=== PATIENT | female | born 1965 | race Caucasian/White ===

== ENCOUNTER 2025-04-14 10:26 | Emergency (ER) | payer BC, SELFPAY ==
[2025-04-14 10:39] VITALS: BP 126/89
[2025-04-14 11:19] VITALS: BMI 18.5
[2025-04-14 11:28] VITALS: BP 118/80
[2025-04-14 11:45] LABS: % Basophils 0.5 % (0-2); % Eosinophils 0.5 % (0-6); % Immature Granulocytes 0.2 % (0-0.5); % Lymphocytes 25.1 % (20.5-51.1); % Monocytes 7.2 % (1.7-9.3); % Neutrophils 66.5 % (42.2-75.2); Absolute Lymphocytes 1.5 10^3/uL (1.2-3.4); Absolute Monocytes 0.4 10^3/uL (0.1-0.6); Absolute Neutrophils 4.1 10^3/uL (1.4-6.5); Hematocrit 44.3 % (37.0-47.0); Hemoglobin 15.1 g/dL (12.0-16.0); Mean Corp Hgb Conc. 34.1 g/dL (33.0-37.0); Mean Corpuscular Hgb 33.7 pg (27.0-31.0); Mean Corpuscular Volume 98.9 fL (81.0-99.0); Mean Platelet Volume 10.9 fL (7.4-10.4); Nucleated Red Blood Cells % 0 %; Platelet Count 178 10^3/uL (130-400); Red Blood Cell Count 4.48 10^6/uL (4.20-5.40); Red Cell Dist. Width 12.6 % (11.5-14.5); White Blood Cell Count 6.1 10^3/uL (4.8-10.8)
--- NOTE | 2025-04-14 11:46 | ED.GENMED ---
History of Present Illness
General
Chief Complaint: Abdominal Pain
Source: patient and spouse
Exam Limitations: none
Time Seen by Provider: 04/14/25 11:29
Nursing documentation reviewed up to this point in time: agreed with
History of Present Illness
History of Present Illness:
59-year-old female presents emergency ferment due to left lower quadrant abdominal pain ongoing for 2 months, intermittent. She was seen in urgent care and her primary care the blood work was normal. She denies fevers, but had chills last night.
Past History
Past History
ED Past Medical History: Hypercholesterolemia and Hypothyroidism
ED Past Surgical History: Gynecological (Hysterectomy) and Other (Umbilical hernia repair)
Social History
Tobacco: Non-smoker
Alcohol: None
Drug: None
Personal:
Living: with family
Review of Systems
Review of Systems
Allergies reviewed?: Yes
All Other Systems: Not applicable
Constitutional: Reports chills; Denies fever
EENT: Reports no symptoms
Respiratory: Reports no symptoms
Cardiac: Reports no symptoms
ABD/GI: Reports abdominal pain; Denies vomiting or diarrhea
: Reports no symptoms
Musculoskeletal: Reports no symptoms
Skin: Reports no symptoms
Neurological: Reports no symptoms
Endocrine: Reports no symptoms
Hematologic/Lymphatic: Reports no symptoms
Psychiatric: Reports no symptoms
Phy Exam
Physical Exam
Physical Exam:
Physical Exam
General: no apparent distress, not acutely ill
Neck: supple. no meningeal signs. normal posterior pharynx
Heart: s1/s2 regular rate and rhythm, no murmur. equal radial
pulses.
HEENT: Pupils equal round reactive to light, EOMI
Lungs: no acute respiratory distress. clear bilaterally
Abdomen: normal bowel sounds. Mild left lower quadrant tenderness. no CVAT
Neuro: alert and oriented. no focal neurological deficits cranial nerves II through XII intact
Skin: no rash
Psychiatric: well kept. interactive and cooperative
Extremities: no edema. no calf tenderness. negative homans. good distal pulses
Course
Orders/Labs/Results
Orders:
Orders
04/14/25 11:30
Complete Blood Count/With Diff Urgent
Comprehensive Metabolic Panel Urgent
Lipase Urgent
04/14/25 11:35
Urinalysis Reflex To Culture Urgent
Date Specimen was Collected: 04/14/25
Time Specimen was Collected: 11:34
04/14/25 11:45
CT Abd/pel W Iv And Oral Contr Urgent
Comment:
Reason For Exam: LLQ abdominal pain
Iohexol [Omnipaque] See Protocol PO NOW STA
Abnormal Lab Results
04/14/25
11:30
MCH 33.7 H pg
(27.0-31.0)
MPV 10.9 H fL
(7.4-10.4)
Chloride 108 H mmol/L
(98-107)
Glucose 110 H mg/dl
(70-99)
Albumin 5.1 H g/dl
(3.5-5.0)
04/14/25 11:30
04/14/25 11:30
Vital Signs
Initial and Last Documented VS:
Initial Vital Signs
Temp Pulse Resp BP Pulse Ox
98.1 F 95 22 126/89 99
04/14/25 10:39 04/14/25 10:39 04/14/25 10:39 04/14/25 10:39 04/14/25 10:39
Last Documented Vital Signs
Temp Pulse Resp BP Pulse Ox
98.1 F 72 18 121/78 99
04/14/25 10:39 04/14/25 14:41 04/14/25 14:41 04/14/25 15:23 04/14/25 15:23
MDM/Problems Addressed
Differential Diagnosis Includes:
Diverticulitis, constipation
MDM/Problems Addressed:
59-year-old female with left lower quadrant abdominal pain, due to constipation. No signs of diverticulitis, or bowel obstruction. Stable for discharge. Will encourage MiraLAX for 1 week. Follow up with primary care. Return precautions given.
*Radiology
Radiology exam reviewed: radiology read reviewed (CT abdomen pelvis shows constipation, no other acute findings)
*Pulse Oximetry
Patient hypoxic: no
*Critical Care Note
Total Time (30-74mins, 75-104mins- exclusive of procedures): Not Applicable
Patient Management
Social determinants of health affecting care: Living situation and Strong social support
Escalation/DeEscalation of care consider admission/obs:
admit not indicated
ED Attending Note
-
Portions of this chart may have been created with voice recognition software.� Occasional wrong word or��sound alike� substitutions may have occurred due to the inherent limitations of voice recognition software.
Discharge Plan
Departure
Patient Disposition: Home (Routine Discharge)
Date of Disposition: 04/14/25
Time of Disposition: 16:19
Patient with high blood pressure during this ER visit?: Yes
Condition: Good
Discharge Problem:
Constipation, Abdominal pain
Instructions: Constipation, Adult (DC), Abdominal Pain, BLOOD PRESSURE
Referrals:
Su Harper, [Family Provider] - Call in 1-3 days for appt
Activity Restrictions/Additional Instructions:
Use miralax, 1 scoop per day for 1 week. Mix in juice.
Interventions
Interventions:
*Risk Screen - Suicide Last Done: 04/14/25 10:39
*General Assessment Last Done: 04/14/25 10:39
*Neglect/Abuse Screening Last Done: 04/14/25 10:39
*ED- Fall Risk Assessment Last Done: 04/14/25 11:19
*ED COVID-19 Vaccine History Last Done: 04/14/25 11:19
AH-Rthpat-Uocpuwafth Assessment Last Done: 04/14/25 11:19
Discharge Date and Time
Print Language: CYPRIOT
[2025-04-14] MEDS: OMNIPAQUE 50 ML PO (11:50)
[2025-04-14 11:51] LABS: ALT (SGPT) 23 U/L (0-35); AST (SGOT) 30 U/L (14-36); Albumin 5.1 g/dl (3.5-5.0); Alkaline Phosphatase 65 U/L (38-126); Blood Urea Nitrogen 11 mg/dl (7-17); Calcium 10.1 mg/dl (8.4-10.2); Carbon Dioxide 27 mmol/L (22-30); Chloride 108 mmol/L (98-107); Estimated Creatinine Clearance 80 ml/min; Glucose 110 mg/dl (70-99); Lipase 84 U/L (23-300); Potassium 4.7 mmol/L (3.5-5.1); Sodium 142 mmol/L (135-145); Total Bilirubin 1.2 mg/dl (0.2-1.3); Total Protein 8.1 g/dl (6.3-8.2); eGFR > 60.00
[2025-04-14 11:57] LABS: Urine Albumin Negative (Neg - Trace); Urine Bilirubin Negative (Negative); Urine Character Clear (Clear); Urine Color Yellow; Urine Glucose Negative (Negative); Urine Ketone Negative (Negative); Urine Leukocyte Negative (Negative); Urine Nitrite Negative (Negative); Urine Occult Blood Negative (Negative); Urine Specific Gravity 1.005 (<1.030); Urine Urobilinogen Negative (Neg - 1+); Urine pH 6.5 (5.0-9.0)
[2025-04-14 12:00] VITALS: BP 115/80
[2025-04-14 13:14] VITALS: BP 108/73
[2025-04-14 14:00] VITALS: BP 112/70
[2025-04-14 15:23] VITALS: BP 121/78
== END 2025-04-14 17:02 | disposition home or self-care (01) ==
LOC: EMR 10:26
PROVIDERS: EMERGENCY PHYSICIAN Emergency Medicine; FAMILY PHYSICIAN Family Medicine
DX: K59.00 Constipation, unspecified (principal); R10.32 Left lower quadrant pain; E78.00 Pure hypercholesterolemia, unspecified; E03.9 Hypothyroidism, unspecified; Z90.710 Acquired absence of both cervix and uterus
CPT/HCPCS: 99284; 74177; 80053; 81003; 83690; 85025; Q9967

== ENCOUNTER 2025-07-08 06:55 | Emergency (ER) | payer BC, SELFPAY ==
[2025-07-08 06:58] VITALS: BP 147/92
--- NOTE | 2025-07-08 08:30 | ED.GENMED ---
History of Present Illness
General
Chief Complaint: Extremity Pain (non-traumatic)
Source: patient
Exam Limitations: none
Time Seen by Provider: 07/08/25 08:18
History of Present Illness
History of Present Illness:
60yoF with a history of hypothyroidism and hyperlipidemia presenting with her for evaluation of myalgias. Patient reports pain and muscle cramping in her extremities for the past 2 weeks. Symptoms seem to be worse in the left forearm and
right calf. No trauma. Symptoms began shortly after undergoing a colonoscopy. She was seen at [facility] 6 days ago and had blood work which she was told was normal. Patient is concerned that something is 'off balance' in her system. She has
tried taking electrolytes without improvement. She also reports feeling shaky and has been having difficulty sleeping the past 3 days because her body will jolt and she will wake up. She denies any headaches, visual changes, vomiting, diarrhea,
chest pain, shortness of breath, fevers, joint swelling, rashes.
Past History
Past History
ED Past Medical History: Hypercholesterolemia and Hypothyroidism
ED Past Surgical History: Gynecological (Hysterectomy) and Other (Umbilical hernia repair)
Social History
Tobacco: Non-smoker
Alcohol: None
Drug: None
Personal:
Living: with family
Phy Exam
General Physical Exam
General Presentation: well appearing and no apparent distress
General Skin: warm and dry
General Habitus: normal
General Mental: alert
ENT Exam
ENT Exam: normocephalic and other (+Tenderness and tightness at the cervical portion of the L trapezius muscle)
Eye Exam
Eye Exam: PERRL and conjunctiva normal
Cardiovascular Exam
Cardiovascular Exam: regular rate/rhythm, no edema and no murmur
Pulmonary Exam
Pulmonary Exam: lungs clear, no respiratory distress, no rales, no crackles, no rhonchi and no wheezing
Neurological Exam
Neurological Exam: alert
[place] Coma Scale
Eye Opening: Spontaneous
Verbal Response: Oriented
Motor Response: Obeys Commands
GCS Total Score: 15
Musculoskeletal Exam
Musculoskeletal Exam: other (No joint swelling or erythema)
Skin Exam
Skin Exam: normal color and warm/dry
Psychiatric Exam
Psychiatric Exam: normal mood/affect
Course
Orders/Labs/Results
Orders:
Orders
07/08/25 08:28
Electrocardiogram (*1) Urgent
Reason for Study: Other
Other Reason for Exam: L arm pain
Cardiac Monitoring- Treatment ONCE
EKG- Treatment ONCE
0.9% Sodium Chloride 1000 ml [Nss] 1,000 ml IV BOLUS
Ketorolac [Toradol] 15 mg IV NOW STA
07/08/25 08:39
Complete Blood Count/With Diff Urgent
TSH Reflex To Free T4 Urgent
07/08/25 09:04
Troponin I Urgent
07/08/25 09:44
Comprehensive Metabolic Panel Urgent
Creatine Phosphokinase Urgent
Magnesium Urgent
Abnormal Lab Results
07/08/25 07/08/25
08:39 09:44
MCH 33.0 H pg
(27.0-31.0)
MPV 10.5 H fL
(7.4-10.4)
Chloride 108 H mmol/L
(98-107)
Creatinine 0.5 L mg/dL
(0.6-1.0)
Glucose 101 H mg/dl
(70-99)
07/08/25 08:39
07/08/25 09:44
Vital Signs
Initial and Last Documented VS:
Initial Vital Signs
Temp Pulse Resp BP Pulse Ox
98.3 F 77 16 147/92 98
07/08/25 06:58 07/08/25 06:58 07/08/25 06:58 07/08/25 06:58 07/08/25 06:58
Last Documented Vital Signs
Temp Pulse Resp BP Pulse Ox
98.6 F 68 16 125/74 99
07/08/25 08:38 07/08/25 11:15 07/08/25 11:15 07/08/25 11:00 07/08/25 11:15
MDM/Problems Addressed
Differential Diagnosis Includes:
60yoF here with muscle cramping x 2 weeks. Now having difficulty sleeping for a few days due to shakiness. Started after having a colonoscopy. VSS. She is well appearing in no distress. Exam reassuring without extremity swelling or skin changes.
Differential diagnosis includes but is not limited to: electrolyte abnormality, dehydration, anxiety, consider ACS, less likely rhabdomyolysis
Initial ED plan: Check cardiac labs, CK, magnesium, TSH, and EKG. IV Toradol and fluid bolus for symptoms.
*Pulse Oximetry
SaO2: 98
Oxygen Mode of Delivery: Room air
Patient hypoxic: no (98%)
*EKG
Interpreted by ED Provider?: Yes
EKG Intrepretation Date: 07/08/25
Heart Rate: 57
Rate: bradycardiac
Rhythm: sinus
[place]: normal axis
Interval: normal interval
QRS Pattern: normal QRS
Ischemia: non-specific ST changes
*Critical Care Note
Total Time (30-74mins, 75-104mins- exclusive of procedures): Not Applicable
Update Note
Update Note:
EKG shows NSR with nonspecific ST/T wave changes. No prior EKGs to compare to. No chest pain and troponin WNL. Electrolytes, renal function, CK, and TSH normal. Unclear etiology of symptoms. Considered side effect of her statin although she has been
only this for over a year without issue. Patient requesting a muscle relaxer. Will trial Robaxin. She has an appt with her PCP in 2 days so will have close f/u. Patient discharged in stable condition.
ED Attending Note
-
Portions of this chart may have been created with voice recognition software.� Occasional wrong word or��sound alike� substitutions may have occurred due to the inherent limitations of voice recognition software.
Discharge Plan
Departure
Patient Disposition: Home (Routine Discharge)
Date of Disposition: 07/08/25
Time of Disposition: 10:56
Patient with high blood pressure during this ER visit?: No
Discharge Problem:
Muscle cramping
Instructions: Muscle, joint, and bone pain - Discharge instructions
Prescriptions:
New
methocarbamol 500 mg tablet
500 mg PO Q8H PRN (Reason: muscle spasms) Qty: 20 0RF
No Action
levothyroxine 50 mcg Tablet
50 mcg PO DAILY
rosuvastatin 10 mg Tablet
10 mg PO DAILY
Referrals:
Su Harper DO [Family Provider, Family Practice]
Activity Restrictions/Additional Instructions:
Take Robaxin as needed for muscle spasms.
Please follow-up with your family doctor in 2 days as previously scheduled. Return to the ER with any new or worsening symptoms.
Interventions
Interventions:
*Risk Screen - Suicide Last Done: 07/08/25 06:58
*General Assessment Last Done: 07/08/25 08:38
*Neglect/Abuse Screening Last Done: 07/08/25 06:58
*ED- Fall Risk Assessment Last Done: 07/08/25 08:38
*ED COVID-19 Vaccine History Last Done: 07/08/25 08:38
*Nursing Disposition Last Done: 07/08/25 11:44
ED-Skin Assessment Last Done: 07/08/25 08:38
ED-Peripheral Vascular Assessment Last Done: 07/08/25 08:38
ED-Musculoskeletal Assessment Last Done: 07/08/25 08:38
Discharge Date and Time
Discharge Date/Time: 07/08/25 11:45
Print Language: KHMER
[2025-07-08 08:38] VITALS: BP 121/76; BMI 20.5
[2025-07-08 08:57] LABS: Hematocrit 43.5 % (37.0-47.0); Hemoglobin 14.8 g/dL (12.0-16.0); Mean Corp Hgb Conc. 34.0 g/dL (33.0-37.0); Mean Corpuscular Volume 97.1 fL (81.0-99.0); Nucleated Red Blood Cells % 0 %; Platelet Count 191 10^3/uL (130-400); Red Cell Dist. Width 12.6 % (11.5-14.5)
[2025-07-08] MEDS: NSS 1000 IV (09:17)
[2025-07-08 09:18] VITALS: BP 121/76
[2025-07-08] MEDS: TORADOL 15 MG IV (09:18)
[2025-07-08 09:40] LABS: Troponin I < 0.012 ng/ml
[2025-07-08 10:00] VITALS: BP 125/75
[2025-07-08 10:13] LABS: ALT (SGPT) 17 U/L (0-35); AST (SGOT) 21 U/L (14-36); Albumin 4.5 g/dl (3.5-5.0); Alkaline Phosphatase 58 U/L (38-126); Blood Urea Nitrogen 8 mg/dl (7-17); Calcium 9.8 mg/dl (8.4-10.2); Carbon Dioxide 27 mmol/L (22-30); Chloride 108 mmol/L (98-107); Estimated Creatinine Clearance 79 ml/min; Glucose 101 mg/dl (70-99); Magnesium 2.1 mg/dl (1.6-2.3); Potassium 4.3 mmol/L (3.5-5.1); Sodium 139 mmol/L (135-145); Total Protein 6.9 g/dl (6.3-8.2); eGFR > 60.00
[2025-07-08 11:00] VITALS: BP 125/74
== END 2025-07-08 11:45 | disposition home or self-care (01) ==
LOC: EMR 06:55
PROVIDERS: Physician Assistant; EMERGENCY PHYSICIAN Emergency Medicine; FAMILY PHYSICIAN Family Medicine
DX: R25.2 Cramp and spasm (principal); E78.00 Pure hypercholesterolemia, unspecified; E03.9 Hypothyroidism, unspecified
CPT/HCPCS: 99284; 96374; 96361; 80053; 82550; 83735; 84443; 84484; 85025; 93005

== ENCOUNTER 2025-07-26 11:35 | Emergency (ER) | payer BC, SELFPAY ==
[2025-07-26] VITALS (7 sets, daily range): BP systolic 104–139; BP diastolic 62–84; BMI 20.5
--- NOTE | 2025-07-26 12:58 | ED.GENMED ---
History of Present Illness
General
Chief Complaint: Breathing Problem
Source: patient and spouse
Time Seen by Provider: 07/26/25 12:29
History of Present Illness
History of Present Illness:
This patient is a 60-year-old female who presents emergency department with complaints that for started about a month ago. She describes inability to sleep such that she is up for many hours throughout the night. Sometimes when she tries to sleep
she feels like her body will have a momentary jerk which wakes her up. She also notes that she feels like she 'cannot shut my brain down' when she tries to close her eyes. She was seen in the emergency department within this timeframe and was
prescribed a muscle relaxant which did not provide relief of her symptoms. She then was prescribed Lunesta which she took for a total of 9 days. She did not tolerate this medication because the next day she would feel very anxious and agitated.
She then was transition to trazodone which she has taken a few doses of and notes similar symptoms during the day. She also is experiencing headaches described as 'tension strain' across the front of her forehead eyes area particular when she
closes her eyes. This is not associated with visual changes, double vision, neck pain. Headache has been persistent for many days such that she went to an outside ER last week and had a workup including a head CT that was unremarkable and she was
advised to follow-up with neurology. Recently over the past week she notes that she feels like she cannot completely exhale and that she needs to tell herself to breathe. She was prescribed an inhaler by her doctor yesterday with minimal relief of
symptoms. She denies calf or leg swelling. She is a non-smoker and does not have other identifiable DVT/PE risk factors. She also notes discomfort on the left side of her thorax that feels like 'nerve pain. It would last for minutes at a time
and then go away, without specific provoking or relieving factors. She says it feels like she can 'feel my lung'. She denies associated fever, chills, cough, sore throat, rhinorrhea, rash, abdominal pain, anorexia, nausea, vomiting, back pain.
She admits to feeling extremely anxious. He currently does not have chest discomfort.
Past History
Past History
ED Past Medical History: Hypercholesterolemia and Hypothyroidism
ED Past Surgical History: Gynecological (Hysterectomy) and Other (Umbilical hernia repair)
Social History
Tobacco: Non-smoker
Alcohol: None
Drug: None
Personal:
Living: with family
Phy Exam
Physical Exam
Physical Exam:
GENERAL: Alert , in no apparent distress
EYE: pupils equal and reactive
NECK: Supple, no significant adenopathy.
ENT: o/p clr, mmm.
CARDIAC: Regular rate and rhythm .
LUNGS: Clear breath sounds bilaterally, no acute respiratory distress, no wheezes/rales/rhonchi
ABDOMEN: Soft, without focal tenderness, no r/g, no cvat
NEUROLOGICAL: Alert and oriented, no focal neuro deficits
SKIN: Warm and dry, skin intact, no rash noted at the.
MUSCULOSKELETAL: No edema, well perfused.
PSYCH: Normal and appropriate interaction but anxious appearing.
Scores
Heart Failure Risk
Heart Failure Risk Score: Not Applicable
Course
Orders/Labs/Results
Orders:
Orders
07/26/25 11:44
Electrocardiogram (*1) Urgent
Reason for Study: Shortness of Breath
EKG- Treatment ONCE
07/26/25 12:30
Cardiac Monitoring- Treatment ONCE
CR Chest - 2 Views Urgent
Comment:
Reason For Exam: cp
07/26/25 12:55
Complete Blood Count/No Diff Urgent
D-Dimer Urgent
07/26/25 12:57
diazePAM [Valium Injection] 2 mg IV NOW STA
07/26/25 13:27
Basic Metabolic Panel Urgent
Troponin I Urgent
Abnormal Lab Results
07/26/25 07/26/25
12:55 13:27
MCV 99.1 H fL
(81.0-99.0)
MCH 33.3 H pg
(27.0-31.0)
MPV 10.5 H fL
(7.4-10.4)
Creatinine 0.5 L mg/dL
(0.6-1.0)
07/26/25 12:55
07/26/25 13:27
Vital Signs
Initial and Last Documented VS:
Initial Vital Signs
Temp Pulse Resp BP Pulse Ox
98.6 F 72 16 139/84 98
07/26/25 11:40 07/26/25 11:40 07/26/25 11:40 07/26/25 11:40 07/26/25 11:40
Last Documented Vital Signs
Temp Pulse Resp BP Pulse Ox
98.5 F 72 17 120/70 100
07/26/25 13:12 07/26/25 15:02 07/26/25 15:02 07/26/25 15:02 07/26/25 15:02
*Pulse Oximetry
SaO2: 98
Oxygen Mode of Delivery: Room air
Patient hypoxic: no
*Critical Care Note
Total Time (30-74mins, 75-104mins- exclusive of procedures): Not Applicable
Update Note
Update Note:
Patient presents to the Emergency Department with ___headache, insomnia, chest discomfort, feeling like she has to take a full breath, etc.
Number and Complexity of Problems Addressed at the Encounter
� Chronic conditions affecting care:
� Acute Exacerbation and/or Progression of Chronic Illness:
� Differential Diagnosis includes: But not limited to menopausal symptoms, anxiety, PE, ACS, etc. etc. etc.
Amount and/or Complexity of Data to be Reviewed and Analyzed
� I performed an independent evaluation of and my interpretation is:
EKG: Read by me, normal sinus rhythm, normal rate, no acute ischemia
CT:
Xrays: Read by me NAD
Laboratory Studies: Unremarkable
Other:
� Review of other/old records reveals:
� Clinical information was obtained by an independent historian: who is bedside
� Prescriptions/Medications Considered but not given:
� Further testing considered but not performed:
Risk of Complications and/or Morbidity or Mortality of Patient Management
� Social determinants of health affecting care:
� Discussion with other providers (PCP, Hospitalists, Consultants, etc):
� Escalation of care including admission/observation vs risk of discharge considered: 3:07 PM patient feels more relaxed status post Valium here. No specific worrisome etiology noted for her symptoms, did recommend that she
continue further treatment/workup with her primary care doctor as soon as possible. Discussed with her reasons to return to the ER.
ED Attending Note
-
Portions of this chart may have been created with voice recognition software.� Occasional wrong word or��sound alike� substitutions may have occurred due to the inherent limitations of voice recognition software.
Discharge Plan
Departure
Patient Disposition: Home (Routine Discharge)
Date of Disposition: 07/26/25
Time of Disposition: 15:08
Patient with high blood pressure during this ER visit?: Yes
Condition: Good
Discharge Problem:
Chest pain, Insomnia
Instructions: Insomnia, Chest Pain (DC), BLOOD PRESSURE
Prescriptions:
No Action
levothyroxine 50 mcg Tablet
50 mcg PO DAILY
rosuvastatin 10 mg Tablet
10 mg PO DAILY
Referrals:
Su Harper DO [Family Provider, Family Practice] - Tomorrow
Activity Restrictions/Additional Instructions:
IF YOU DEVELOP NEW/INCREASING PAIN, ANY FEVER, VOMITING, DIZZINESS, OR OTHER WORRIOSME SIGNS, GO TO THE ER IMMEDIATELY!
Interventions
Interventions:
*Risk Screen - Suicide Last Done: 07/26/25 11:40
*General Assessment Last Done: 07/26/25 13:12
*Neglect/Abuse Screening Last Done: 07/26/25 11:40
*ED- Fall Risk Assessment Last Done: 07/26/25 13:12
*ED COVID-19 Vaccine History Last Done: 07/26/25 13:12
ED- Cardiac Assessment Last Done: 07/26/25 13:12
ED- Pulmonary Assessment Last Done: 07/26/25 13:12
Discharge Date and Time
Print Language: DOMINICAN
[2025-07-26] MEDS: VALIUM INJECTION 2 MG IV (13:03)
[2025-07-26 13:09] LABS: Hematocrit 42.3 % (37.0-47.0); Hemoglobin 14.2 g/dL (12.0-16.0); Mean Corp Hgb Conc. 33.6 g/dL (33.0-37.0); Mean Corpuscular Volume 99.1 fL (81.0-99.0); Platelet Count 189 10^3/uL (130-400); Red Cell Dist. Width 12.8 % (11.5-14.5)
[2025-07-26 13:28] LABS: D-Dimer < 0.27 ug/mlFEU (0.00-0.50)
[2025-07-26 14:15] LABS: Blood Urea Nitrogen 12 mg/dl (7-17); Estimated Creatinine Clearance 79 ml/min; Glucose 99 mg/dl (70-99); eGFR > 60.00
[2025-07-26 14:16] LABS: Calcium 9.8 mg/dl (8.4-10.2); Carbon Dioxide 30 mmol/L (22-30); Chloride 106 mmol/L (98-107); Sodium 137 mmol/L (135-145)
[2025-07-26 14:17] LABS: Troponin I < 0.012 ng/ml
== END 2025-07-26 16:21 | disposition home or self-care (01) ==
LOC: EMR 11:35
PROVIDERS: EMERGENCY PHYSICIAN Emergency Medicine; FAMILY PHYSICIAN Family Medicine
DX: G47.00 Insomnia, unspecified (principal); R07.9 Chest pain, unspecified; E03.9 Hypothyroidism, unspecified; E78.00 Pure hypercholesterolemia, unspecified
CPT/HCPCS: 96374; 99285; 71046; 80048; 84484; 85027; 85379; 93005